=== PATIENT | male | born 1945 | race Caucasian/White ===

== ENCOUNTER → 2017-12-29 | Outpatient (CLI) | payer MEDICARE, OTHER ==
[~2017-12-29] MED LIST: ALLEGRA ALLERG180 MG PO; ANDROGEL75 GM TOP; ASPIR 8181 MG PO; FLEXERIL PO; FLOMAX0.4 MG PO; FOLGARD TABLET1 EAC1 PO; HYDROCHLOROTHIA25 M2 PO; HYDROCODONE-APA1 TA1 PO; IRON325 PO; LISINOPRIL20 MG PO; MOBIC15 MG PO; NEURONTIN 300300 M1 PO; NORVASC2.5 MG PO; OMEGA-31000 M1 PO; OMEPRAZOLE40 MG PO; PROSCAR 5MG TABL5 MG PO; TRAMADOL 50 MG50 MG PO; UNICOMPLEX M TA1 TA1 PO; VIAGRA100 MG PO; VIT C-ROSE HIP500 MG PO; [UNRECOGNIZED DRUG - REMARK]
== END ==
LOC: M.RAD 10:28
DX: K59.00 Constipation, unspecified (principal)

== ENCOUNTER → 2018-05-01 | Outpatient (CLI) | payer MEDICARE, OTHER ==
[2018-05-01 14:49] LABS: ABSOLUTE LYMPHOCYTES 0.7 thou/uL (0.8-5.3); ABSOLUTE MONOCYTES 0.3 thou/uL (0.0-1.2); ABSOLUTE NEUTROPHILS 2.9 thou/uL (1.6-8.1); BASOPHILS 0.6 %; HEMATOCRIT 33.7 % (42.0-52.0); HEMOGLOBIN 11.3 gm/dL (14.0-18.0); LYMPHOCYTES 18.1 %; MCH 30.3 pg (26.0-34.0); MCHC 33.6 g/dL (28.0-37.0); MCV 90.1 fL (80.0-100.0); MONOCYTES 6.7 %; NUCLEATED RBCS 0 /100WBC; PLATELET COUNT* 193 thou/uL (150-400); POLYS 73.6 %; RBC 3.74 mil/uL (4.50-6.00); RDW-CV 15.2 % (10.5-14.5); WBC 3.9 thou/uL (4.0-11.0)
[2018-05-01 15:49] LABS: ESR (SEDRATE) 30 mm/hr (0-20)
== END ==
LOC: M.LAB 14:28
PROVIDERS: Internal Medicine Gastroenterology
DX: D50.9 Iron deficiency anemia, unspecified (principal)

== ENCOUNTER → 2018-07-27 | Outpatient (CLI) | payer MEDICARE, OTHER ==
[2018-07-27 10:14] LABS: ABSOLUTE EOSINOPHILS 0.1 thou/uL (0.0-0.7); ABSOLUTE LYMPHOCYTES 0.7 thou/uL (0.8-5.3); ABSOLUTE MONOCYTES 0.2 thou/uL (0.0-1.2); ABSOLUTE NEUTROPHILS 2.6 thou/uL (1.6-8.1); BASOPHILS 0.8 %; EOSINOPHILS 1.9 %; HEMATOCRIT 37.4 % (42.0-52.0); HEMOGLOBIN 12.4 gm/dL (14.0-18.0); LYMPHOCYTES 18.9 %; MCH 29.3 pg (26.0-34.0); MCHC 33.2 g/dL (28.0-37.0); MCV 88.3 fL (80.0-100.0); NUCLEATED RBCS 0 /100WBC; PLATELET COUNT* 184 thou/uL (150-400); POLYS 72.4 %; RBC 4.24 mil/uL (4.50-6.00); RDW-CV 14.6 % (10.5-14.5); WBC 3.6 thou/uL (4.0-11.0)
[2018-07-27 11:14] LABS: ESR (SEDRATE) 2 mm/hr (0-20)
[2018-07-27 13:30] LABS: % SATURATION 17 % (20-39); IRON 58 ug/dL (50-175)
== END ==
LOC: M.LAB 09:49
PROVIDERS: Internal Medicine Gastroenterology
DX: D50.9 Iron deficiency anemia, unspecified (principal)

== ENCOUNTER → 2018-09-25 | Outpatient (CLI) | payer MEDICARE, OTHER | LOC: M.MRI 16:13 | DX: M47.26 Other spondylosis with radiculopathy, lumbar region (principal); M51.16 Intervertebral disc disorders with radiculopathy, lumbar region; M43.17 Spondylolisthesis, lumbosacral region; M48.07 Spinal stenosis, lumbosacral region; M96.1 Postlaminectomy syndrome, not elsewhere classified; M51.27 Other intervertebral disc displacement, lumbosacral region ==

== ENCOUNTER → 2018-10-08 | Outpatient (CLI) | payer MEDICARE, OTHER ==
[2018-10-08 07:40] LABS: ABSOLUTE LYMPHOCYTES 0.8 thou/uL (0.8-5.3); ABSOLUTE MONOCYTES 0.2 thou/uL (0.0-1.2); ABSOLUTE NEUTROPHILS 2.8 thou/uL (1.6-8.1); BASOPHILS 0.7 %; EOSINOPHILS 1.1 %; HEMATOCRIT 38.6 % (42.0-52.0); HEMOGLOBIN 13.1 gm/dL (14.0-18.0); MCH 29.7 pg (26.0-34.0); MCHC 33.8 g/dL (28.0-37.0); MCV 87.8 fL (80.0-100.0); MPV 5.7 fl. (7.2-11.1); NUCLEATED RBCS 0 /100WBC; PLATELET COUNT* 145 thou/uL (150-400); POLYS 72.2 %; RDW-CV 14.7 % (10.5-14.5); WBC 3.9 thou/uL (4.0-11.0)
[2018-10-08 08:06] LABS: ALBUMIN 3.5 g/dL (3.4-5.0); ALKALINE PHOSPHATASE 69 U/L (46-116); ANION GAP 4 mmol/L (7-16); BUN 17 mg/dL (7-18); CALCIUM 8.8 mg/dL (8.5-10.1); CHLORIDE 97 mmol/L (98-107); CHOLESTEROL 136 mg/dL (<200); CO2 31 mmol/L (21-32); CREATININE 1.2 mg/dL (0.6-1.3); GLUCOSE 96 mg/dL (70-99); HDL CHOLESTEROL 46 mg/dL (>40); LDL CHOLESTEROL 81 mg/dL (<100); POTASSIUM 4.5 mmol/L (3.5-5.1); SGOT 17 U/L (15-37); SGPT 21 U/L (30-65); SODIUM 132 mmol/L (136-145); TOTAL BILIRUBIN 0.8 mg/dL (<0.1-1.0); TOTAL PROTEIN 6.2 g/dL (6.4-8.2); TRIGLYCERIDE 45 mg/dL (<150); VLDL 9 mg/dL (<40)
[2018-10-08 08:12] LABS: SERUM ASSESSMENT Clear
[2018-10-08 08:42] LABS: ESR (SEDRATE) 4 mm/hr (0-20)
== END ==
LOC: M.LAB 07:17
PROVIDERS: Internal Medicine Gastroenterology
DX: K26.9 Duodenal ulcer, unspecified as acute or chronic, without hemorrhage or perforation (principal); D50.9 Iron deficiency anemia, unspecified; E78.2 Mixed hyperlipidemia; R93.1 Abnormal findings on diagnostic imaging of heart and coronary circulation

== ENCOUNTER → 2018-11-26 | Outpatient (CLI) | payer MEDICARE, OTHER ==
[~2018-11-26] MED LIST changes: +CELEBREX 200 M200 M1 PO; +HYDROCHLOROTH12.5 M1 PO; +ZOCOR20 MG PO
--- NOTE | ~2018-11-26 | PAINCON ---
[address] [address] PAIN MANAGEMENT CONSULTATION Name: TASNEEM WALLACE [id number] Admission: 11/26/18 Attend Phys: Fern Vuong MD Discharge: Date of : 45 Report #: [id number] THIS REPORT FOR: //name// CC: DO Fenr Germain DATE OF SERVICE: 11/26/2018 CHIEF COMPLAINT: "I had back surgery and now have pain down in my left and right leg and my doctors told me to come to the pain clinic for a shot." HISTORY OF PRESENT ILLNESS: The patient is a 73-year-old gentleman who has been referred to the pain clinic for evaluation of back and leg pain. He is experiencing pain that is radiating down the lower portion of his back to the left and the right side. The patient had surgery. He had rods and pedicle screws placed. He has noticed some pain and discomfort, particularly on the right side with pain radiating down into the anterior portion of his leg and on the left, pain radiating down the anterior portion of his thigh. He states that he had a myelogram. This was last week. He was told to undergo epidural steroid injections to note its efficacy. He rates his pain as 3-4 at this point. He is having some itching down in his feet as well. He had epidural steroids in the past. Pain continued to be problematic and he underwent laminectomy with rods and pedicle screw placement. The surgery was performed at [facility]. ALLERGIES: No known drug allergies. CURRENT MEDICATIONS: Amlodipine 2.5 mg, vitamin C with audelia hips 500 mg, aspirin 81 mg, Celebrex 100 mg b.i.d., iron 325 mg, Jo Ann 180 mg, Proscar 5 mg, hydrochlorothiazide 12.5 mg, lisinopril 20 mg, iron ____ complex, fatty acids 1000 mg, Viagra 100 mg, Zocor 20 mg, Flomax 0.4 mg, testosterone 75 g gel topical, Folgard tablets. PAST MEDICAL HISTORY: 1. Hypertension. 2. Benign prostatic hypertrophy. 3. Seasonal allergies. 4. Iron deficiency. 5. Erectile dysfunction. 6. Hypotestosteronism. 7. Dyslipidemia. 8. Osteoarthritis. 9. Cataract. SOCIAL HISTORY: He is retired, retired in [address]. [place] [address] PAIN MANAGEMENT CONSULTATION Name: TASNEEM WALLACE Room: [facility]#: [id number] Admission: 11/26/18 Attend Phys: Fern Vuong MD Discharge: Date of : 45 Report #: [id number] REVIEW OF SYSTEMS: Generally good health, eye disease, cataract surgery, frequent urination, joint pain, joint stiffness, back pain. LABORATORY DATA: No new laboratory values were available at the time of our interview. MRI dated 04/30/2017 showed multilevel lumbar spondylosis with significant thecal sac stenosis at L3-L4 and L4-L5. Severe medial left neural foraminal stenosis at L4-L5. Severe right and at least moderate to severe left neural foraminal stenosis at L5-S1. Effacement/impingement of the descending left L5-S1 nerve root due to left paracentral disk protrusion. PAIN CLINIC ASSESSMENT AND PQRS: 1. Osteoarthritic changes in the low back area with spondylosis. 2. The patient is not being treated for rheumatoid arthritis. 3. Height 5 feet 6 inches, weight 156 pounds, BMI is 25.1. 4. Vital Signs: Blood pressure 142/74, heart rate 64, respiratory rate 16, room air saturation 96%, and temperature 97.7. 5. Pain intensity 3-4/10. 6. Fall history: The patient has not fallen in the last 3 months. 7. Blood thinner. The patient is not on a blood thinning medication. 8. Hypertension. The patient is being treated for hypertension. 9. Opioid therapy greater than 6 weeks. The patient is not receiving opioid therapy on a regular basis. 10. Risk assessment tool, low for opioid use. 11. Functional assessment tool. 12. Recreational drug use. The patient denies use of recreational drugs. 13. Tobacco: The patient denies use of tobacco and alcohol. The patient drinks alcoholic beverages on occasion. PHYSICAL EXAMINATION: GENERAL: The patient is a well-developed, well-nourished, white male. Appears his stated age. He is alert and oriented x 3. Affect is appropriate. Speech is fluent. HEENT: Normocephalic, atraumatic. Extraocular eye muscles intact. Sclerae nonicteric. Mucous membranes are moist. NECK: Without adenopathy or JVD. The patient has pain and discomfort down in the right as well as the left leg. More problematic on the right than the left, but in the L4-L5 dermatomal distribution bilaterally. Upper extremity muscle strength is judged to be 5/5 for the major muscle groups in the upper extremity. LUNGS: Clear to auscultation without rhonchi or rales. ABDOMEN: Nontender. Bowel sounds present. EXTREMITIES: Lower extremity muscle strength is judged to be 5/5 for the major muscle groups in the lower extremity. The patient has pain that is radiating down the L4-L5 dermatomal distribution on the right as well as on the left. He has a well-healed scar in the midline area and the L3-L4 to sacrum area of [place] [address] PAIN MANAGEMENT CONSULTATION Name: RODRIGOTASNEEM Room: [facility]#: [id number] Admission: 11/26/18 Attend Phys: Fern Vuong MD Discharge: Date of : 45 Report #: [id number] IMPRESSION: 1. Failed back syndrome with pain involving the left L4-L5 dermatomal distribution and the right L4-L5 dermatomal distribution. 2. Hypertension. 3. Benign prostatic hypertrophy. 4. Seasonal allergies. 5. Iron deficiency. 6. Erectile dysfunction. 7. Hypotestosteronism. 8. Dyslipidemia. 9. Osteoarthritis. 10. Cataract RECOMMENDATIONS: We discussed treatment options with the patient. Risks and benefits of an epidural steroid injection using the transforaminal approach were discussed. Possible complications of the procedure, which could include infection, worsening of pain, no improvement in pain, bleeding were discussed and the patient elects to proceed. PROCEDURE NOTE: The patient was taken to the procedure area. He was assisted in getting on the examination table. His back was sterilely prepped with a Betadine solution and allowed to dry. A L4-L5 area on the left was infiltrated with 0.25% bupivacaine. A 20-gauge spinal needle was then advanced into the appropriate placement using anterior as well as posterior imaging. After appropriate positioning, aspiration on the left side was negative. A total of 80 mg Depo-Medrol was injected. The patient tolerated the procedure well. The right side was treated in a like fashion. A right-sided L4-L5 transforaminal epidural steroid injection was undertaken. Aspiration was negative. A total of 80 mg Depo-Medrol was injected. The patient tolerated the procedure well. There were no complications. A total of approximately 30 seconds fluoroscopy time was used. The patient remained in the pain clinic for an appropriate amount of time. He will return in the future as needed. We would like to thank you for letting us participate in his care. We hope he continues to improve. By: [id number]. Ej Vuong MD /GIA
== END | disposition home or self-care (01) ==
LOC: M.PC 04:52
DX: M51.16 Intervertebral disc disorders with radiculopathy, lumbar region (principal); I10 Essential (primary) hypertension; N40.0 Benign prostatic hyperplasia without lower urinary tract symptoms; N52.9 Male erectile dysfunction, unspecified; E78.5 Hyperlipidemia, unspecified; M19.90 Unspecified osteoarthritis, unspecified site; Z79.899 Other long term (current) drug therapy; Z98.890 Other specified postprocedural states

== ENCOUNTER → 2019-01-20 | Outpatient (CLI) | payer MEDICARE, OTHER ==
[2019-01-20 10:55] LABS: HEMATOCRIT 37.1 % (42.0-52.0); HEMOGLOBIN 12.7 gm/dL (14.0-18.0); MCH 30.5 pg (26.0-34.0); MCHC 34.1 g/dL (28.0-37.0); MCV 89.5 fL (80.0-100.0); MPV 5.9 fl. (7.2-11.1); RBC 4.14 mil/uL (4.50-6.00); RDW-CV 15.1 % (10.5-14.5); WBC 3.5 thou/uL (4.0-11.0)
[2019-01-20 11:27] LABS: ALBUMIN 3.5 g/dL (3.4-5.0); CALCIUM 8.7 mg/dL (8.5-10.1); CREATININE 1.1 mg/dL (0.6-1.3); POTASSIUM 4.9 mmol/L (3.5-5.1); TOTAL BILIRUBIN 0.6 mg/dL (<0.1-1.0); TOTAL PROTEIN 6.5 g/dL (6.4-8.2)
== END ==
LOC: M.LAB 10:10
PROVIDERS: Internal Medicine Gastroenterology
DX: D64.9 Anemia, unspecified (principal)

== ENCOUNTER 2020-11-08 19:13 | Emergency (ER) | payer MEDICARE, OTHER ==
[~2020-11-08] VITALS: Ht 165.1 cm; Wt 68.0 kg
[2020-11-08 19:49] VITALS: BP 159/79
== END 2020-11-08 19:49 | disposition home or self-care (01) ==
LOC: M.ERS 19:13
DX: S61.213A Laceration without foreign body of left middle finger without damage to nail, initial encounter (principal); W23.0XXA Caught, crushed, jammed, or pinched between moving objects, initial encounter; Y93.89 Activity, other specified; Y92.89 Other specified places as the place of occurrence of the external cause; Y99.8 Other external cause status